=== PATIENT | female | born 1985 | race Caucasian/White ===

== ENCOUNTER → 2016-10-12 | Outpatient (CLI) | payer OTHER ==
--- NOTE | ~2016-10-12 | US5 ---
[facility] A Service of [facility] RADIOLOGY TEXT RESULTS PATIENT: SHENG WEAVER LOCATION: [place] : [birth year] UNIT #: [id number] AGE: [address]: Antonio Mitchell MD SEX: F ORDER DR: [id number] [address] [address] [id number] O MR#: [id number] Acc #: [id number] NAME: SHENG WEAVER : 1985 SEX: F STUDY DATE/TIME: 10/12/2016 8:46 UNIT: SGUS ROOM: STUDY DESCRIPTION: US Abdominal Complete Attending Physician: Antonio Mitchell M.D. Referring Physician: Antonio Mitchell M.D. Ordering Physician: Antonio Mitchell M.D. Primary Care Physician: Antonio Mitchell M.D. MEDICAL IMAGING REPORT This report is preliminary unless electronic signature is present. EXAM Ultrasound of the abdomen, complete 10/12/2016 INDICATION Rib trauma 6-7 months ago. Left upper quadrant pain for the last 6-7 months. TECHNIQUE Sonographic imaging of the abdomen was performed. COMPARISON Correlation is made with CT 02/10/2012. FINDINGS Visualized pancreas unremarkable. Segmentally visualized aorta and IVC unremarkable. Liver measures 14.8 cm long axis. No focal liver mass, ascites, or intrahepatic ductal dilatation. Gallbladder is surgically absent. Extrahepatic common bile duct measures 4 mm. The kidneys are nonobstructed. The right measures 10.6 cm long axis and the left 10.7 cm. No shadowing stone on either side. Spleen unremarkable to the extent visualized. IMPRESSION 1. Surgical absence of the gallbladder, otherwise, negative abdominal ultrasound. Dictated by... Hugo Danielson M.D. THIS IS AN ELECTRONICALLY VERIFIED REPORT Hugo Danielson M.D. at 10/12/2016 7:05 PM [facility] A Service of [facility] RADIOLOGY TEXT RESULTS PATIENT: SHENG WEAV[id number] [birth year] UNIT #: [id number] AGE: [address]: Antonio Mitchell MD SEX: F ORDER DR: MARTHA/darrick TD: 10/12/2016 15:21 JOB #: [id number] MEDICAL IMAGING REPORT Page 1 of 1
== END | disposition home or self-care (01) ==
LOC: SGUS 08:38
DX: R10.12 Left upper quadrant pain (principal); Z90.49 Acquired absence of other specified parts of digestive tract
CPT/HCPCS: 76700

== ENCOUNTER → 2016-10-30 | Outpatient (CLI) | payer OTHER ==
--- NOTE | ~2016-10-30 | MR103 ---
[facility]. [facility] A Service of [facility] RADIOLOGY TEXT RESULTS PATIENT: SHENG WEAVER LOCATION: [facility] : [birth year] UNIT #: [id number] AGE: [address]: Erwin Baker IV, MD SEX: F ORDER DR: [id number] [address] [address] [id number] O MR#: [id number] Acc #: [id number] NAME: SHENG WEAVER : 1985 SEX: F STUDY DATE/TIME: 10/30/2016 14:00 UNIT: [facility] ROOM: STUDY DESCRIPTION: MR Knee Wo Contrast Lt Attending Physician: Erwin aBker M.D. Referring Physician: Erwin Baker M.D. Ordering Physician: Erwin Baker M.D. Primary Care Physician: Antonio Mitchell M.D. MRI CENTER REPORT This report is preliminary unless electronic signature is present. EXAM MRI of the left knee HISTORY 31-year-old female injured knee December 2015. Dog ran into her knocking her down. Complains of peripatellar pain, some instability. COMPARISON MRI of the left knee [facility] 03/20/2016 FINDINGS Multiplanar, multiecho imaging of the left knee utilizing a high field magnet dedicated protocol. Bone structure alignment appears normal. No focal marrow edema. Joint fluid within normal limits. Medial and lateral menisci appear intact. Medial and lateral compartment articular cartilage appears normal. In the patellofemoral compartment there is minimal heterogeneity of the medial and lateral patellar facet articular cartilage compatible mild chondromalacia. No deep fissuring identified. The cruciate and collateral ligaments appear intact. The extensor mechanism unremarkable. Extraarticular soft tissues appear normal. IMPRESSION 1. 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 2. No evidence of meniscal tear. No significant change from MRI of 03/20/2016. 1. Dictated by.Amanuel Resendiz M.D. [facility] A Service of [facility] RADIOLOGY TEXT RESULTS PATIENT: SHENG WEAVER LOCATION: [facility] : [birth year] UNIT #: [id number] AGE: [address]: Erwin Baker IV, MD SEX: F ORDER DR: THIS IS AN ELECTRONICALLY VERIFIED REPORT Dayana Resendiz M.D. at 11/02/2016 3:55 PM Sharif TD: 11/02/2016 12:06 JOB #: [id number] MRI CENTER REPORT Page 1 of 1
== END | disposition home or self-care (01) ==
LOC: SMRI 13:42
DX: M25.362 Other instability, left knee (principal); M25.462 Effusion, left knee; M25.562 Pain in left knee
CPT/HCPCS: 73721